=== PATIENT | female | born 1975 | race Caucasian/White ===

== ENCOUNTER → 2017-07-15 | Outpatient (CLI) | payer BC ==
[~2017-07-15] MED LIST: ALTACE 10MG TAB10 MG PO; ALTACE 5MG5 MG PO; ASTEPRO137 MCG/Ac NS; BCP TD; BIRTH CONTROL; CARDIZEM CD 18180 MG PO; CATAPRES 0.1MG0.1 MG PO; CENTRUM1 TAB PO; CETIRIZINE; CLONIDINE0.1 MG PO; DILT-XR180 MG PO; DILTIA XT180 MG PO; EPLERENONE; EPLERENONE25 MG PO; FLOVENT 220MCG7.9 GM IH; HYDROMORPHONE HC2 MG PO; INDERAL LA 60MG60 MG PO; INSPRA25 MG PO; KARIVA; LEVAQUIN500 MG PO; LIPITOR 10MG10 MG PO; NORCO 325 MG-51 TAB PO; NORVASC 5MG5 MG/TAB PO; OMNICEF 300MG300 MG PO; PERCOCET 10/31 UDTAB PO; PILOCARPINE; PILOCARPINE5 MG PO; QVAR; RHINOCORT AQUA; RHINOCORT0.032 MG/2 NS; SUDAFED 12 HOU120 MG PO; SUDAFED30 MG PO; SYNTHROID0.112 MG/T PO; TENORMIN 5050 MG/TAB PO; VALIUM 10MG10 MG/TAB PO; VITAMIN D 50,1.25 MG PO; ZOCOR 10MG10 MG PO; ZYRTEC-D 12HR 51 TER PO; ZYRTEC-D 5 MG-11 TER PO; [UNRECOGNIZED DRUG - OTHER] IH
== END ==
LOC: MC.RAD 09:49
DX: Z12.31 Encounter for screening mammogram for malignant neoplasm of breast (principal)

== ENCOUNTER → 2018-08-19 | Outpatient (CLI) | payer BC | LOC: COL.VAS 13:09 | DX: M79.89 Other specified soft tissue disorders (principal) ==

== ENCOUNTER → 2018-11-10 | Outpatient (CLI) | payer BC | LOC: MC.RAD 10:30 | DX: Z12.31 Encounter for screening mammogram for malignant neoplasm of breast (principal) ==

== ENCOUNTER → 2018-12-31 | Outpatient (CLI) | payer BC | LOC: COL.RAD 13:35 | DX: Z13.6 Encounter for screening for cardiovascular disorders (principal); Z86.718 Personal history of other venous thrombosis and embolism; M79.89 Other specified soft tissue disorders ==

== ENCOUNTER → 2019-11-12 | Outpatient (CLI) | payer BC | LOC: MC.RAD 09:19 | DX: Z12.31 Encounter for screening mammogram for malignant neoplasm of breast (principal) ==

== ENCOUNTER → 2020-11-14 | Outpatient (CLI) | payer BC | LOC: MC.RAD 09:14 | DX: Z12.31 Encounter for screening mammogram for malignant neoplasm of breast (principal); N63.10 Unspecified lump in the right breast, unspecified quadrant ==

== ENCOUNTER → 2020-11-17 | Outpatient (CLI) | payer BC | LOC: MC.RAD 11:00 | DX: N60.01 Solitary cyst of right breast (principal) ==

== ENCOUNTER → 2021-11-16 | Outpatient (CLI) | payer BC | LOC: MC.RAD 09:20 | DX: Z12.31 Encounter for screening mammogram for malignant neoplasm of breast (principal); N63.20 Unspecified lump in the left breast, unspecified quadrant; N64.89 Other specified disorders of breast ==

== ENCOUNTER → 2021-11-21 | Outpatient (CLI) | payer BC | LOC: MC.RAD 13:00 | DX: N63.12 Unspecified lump in the right breast, upper inner quadrant (principal); R92.8 Other abnormal and inconclusive findings on diagnostic imaging of breast ==

== ENCOUNTER → 2021-11-28 | Outpatient (CLI) | payer BC | LOC: MC.RAD 09:59 | DX: N63.10 Unspecified lump in the right breast, unspecified quadrant (principal); N64.89 Other specified disorders of breast ==

== ENCOUNTER → 2023-11-22 | Outpatient (CLI) | payer BC | LOC: MC.RAD 08:50 | DX: Z12.31 Encounter for screening mammogram for malignant neoplasm of breast (principal); N63.10 Unspecified lump in the right breast, unspecified quadrant ==